=== PATIENT | male | born 1945 | race Hispanic/Latino ===

== ENCOUNTER 2022-12-31 14:28 | Emergency (ER) | payer OTHER ==
[~2022-12-31] VITALS: Ht 165.1 cm; Wt 77.6 kg
[2022-12-31] MEDS ORDERED: LIDOCAINE HCL 1% 20 ML VIAL ONE (15:57)
[2022-12-31] MEDS ORDERED: BACITRACIN 1 EACH PACKET TP ONE (16:30)
[2022-12-31] MEDS ORDERED: BACI30OI6 TP (16:58)
[2022-12-31] MEDS ORDERED: AMOX1TAB16 PO (16:58)
[2022-12-31 17:01] VITALS: BP 131/84
== END 2022-12-31 17:08 | disposition home or self-care (01) ==
LOC: EDH 14:28
DX: S61.411A Laceration without foreign body of right hand, initial encounter (principal); Z79.899 Other long term (current) drug therapy; X58.XXXA Exposure to other specified factors, initial encounter; Y93.89 Activity, other specified; Y92.89 Other specified places as the place of occurrence of the external cause; Y99.8 Other external cause status
CPT/HCPCS: 12002; 99282

== ENCOUNTER 2023-01-10 09:25 | Emergency (ER) | payer OTHER ==
[~2023-01-10] VITALS: Ht 152.4 cm; Wt 63.5 kg
[~2023-01-10 09:25] MED LIST: AMOX1TAB16 PO; BACI30OI6 TP
[2023-01-10 09:27] VITALS: BP 117/83
[2023-01-10] MEDS ORDERED: TETANUS/DIPHTHERIA TOXOID [ADULT] 0.5 ML VIAL IM ONE (11:30)
== END 2023-01-10 11:26 | disposition home or self-care (01) ==
LOC: EDH 09:25
DX: S61.411D Laceration without foreign body of right hand, subsequent encounter (principal); X58.XXXD Exposure to other specified factors, subsequent encounter
CPT/HCPCS: 90471; 90714

== ENCOUNTER → 2024-08-23 | Outpatient (CLI) | payer OTHER ==
--- NOTE | 2024-08-23 16:22 | HMCIMG ---
US RENAL SONOGRAM HISTORY: Right flank pain COMPARISON: None TECHNIQUE: Renal and bladder ultrasound study was performed. Bilateral retroperitoneal ultrasound were obtained.. FINDINGS: The right kidney measures 11.4 x 5.8 x 6.2 cm. The left kidney measures 12.2 x 6.2 x 4.6 cm. No evidence of hydronephrosis is seen of either kidney. Both kidneys are seen. There are bilateral renal cysts with right measuring 2 cm and left measuring 6.3 cm. Bladder is poorly distended. Prostate volume is 117.5 cc. Over the region of interest in the bilateral retroperitoneal area, no focal mass lesion is seen. IMPRESSION: 1. No hydronephrosis is seen. Bilateral renal cysts.
== END | disposition home or self-care (01) ==
LOC: RAH 12:17
PROVIDERS: ATTEND Internal Medicine
DX: N28.1 Cyst of kidney, acquired (principal); N32.89 Other specified disorders of bladder; R10.9 Unspecified abdominal pain
CPT/HCPCS: 76770